=== PATIENT | male | born 1995 | race Caucasian/White ===

== ENCOUNTER 2017-10-29 19:23 | Emergency (ER) | payer SELFPAY ==
[~2017-10-29] VITALS: Ht 165.1 cm; Wt 65.9 kg
[2017-10-29 20:20] VITALS: BP 119/81
== END 2017-10-29 20:26 | disposition home or self-care (01) ==
LOC: EMS 19:25
DX: Z02.89 Encounter for other administrative examinations (principal); S61.411D Laceration without foreign body of right hand, subsequent encounter; Y93.39 Activity, other involving climbing, rappelling and jumping off
CPT/HCPCS: 99283